=== PATIENT | female | born 1975 | race Hispanic/Latino ===

== ENCOUNTER → 2025-08-17 | Outpatient (CLI) | payer BC ==
[~2025-08-17] MED LIST: LOSA1TAB42 PO
[2025-08-17 21:32] VITALS: PULSE 97; RESP 16
[2025-08-17 22:00] VITALS: PULSE 94; RESP 14
[2025-08-17 22:34] VITALS: PULSE 85; RESP 14
[2025-08-17 23:00] VITALS: PULSE 82; RESP 20
[2025-08-17 23:30] VITALS: PULSE 83; RESP 20
[2025-08-18] VITALS (11 sets, daily range): PULSE 74–87; RESP 14–18
== END | disposition home or self-care (01) ==
LOC: SLP 20:30
PROVIDERS: ATTEND Internal Medicine Cardiovascular Disease
DX: G47.33 Obstructive sleep apnea (adult) (pediatric) (principal)
CPT/HCPCS: 95810

== ENCOUNTER → 2025-08-29 | Outpatient (CLI) | payer BC ==
[2025-08-29 21:53] VITALS: PULSE 72; PULSE 78; RESP 14
[2025-08-29 22:30] VITALS: PULSE 68; PULSE 74; RESP 14
[2025-08-29 22:37] VITALS: PULSE 62; RESP 14
[2025-08-29 23:00] VITALS: PULSE 72; RESP 12; RESP 14
[2025-08-29 23:30] VITALS: PULSE 68; PULSE 72; RESP 12; RESP 14
[2025-08-30] VITALS (11 sets, daily range): PULSE 67–78; RESP 6–18
== END | disposition home or self-care (01) ==
LOC: SLP 20:29
PROVIDERS: ATTEND Internal Medicine Cardiovascular Disease
DX: G47.33 Obstructive sleep apnea (adult) (pediatric) (principal)
CPT/HCPCS: 95811